=== PATIENT | female | born 1975 | race Caucasian/White ===

== ENCOUNTER → 2016-06-06 | Outpatient (CLI) | payer BC ==
--- NOTE | 2016-06-06 10:28 | RADIOLOGY REPORT PS360 ---
KNEE-3 VIEWS-LT HISTORY: LEFT KNEE PAIN AND STIFFNESS ORDERING PHYSICIAN: Skinny Maloney MD PATIENT AGE: 41 years COMPARISON: None FINDINGS: No fracture or dislocation. No lytic or blastic change. Normal mineralization. Mild osteoarthritic changes involve the medial compartment and patellofemoral joint. No other significant findings IMPRESSION: Mild osteoarthritic change
== END ==
LOC: RAD 09:59
DX: M25.562 Pain in left knee (principal); M25.462 Effusion, left knee